=== PATIENT | male | born 1990 | race Caucasian/White ===

== ENCOUNTER → 2020-12-29 07:59 | Outpatient (CLI) | payer OTHER, SELFPAY ==
--- NOTE | ~2020-12-29 | CT_ITS ---
EXAMINATION: CT sinus wo con DATE: 12/29/2020 08:20 INDICATION: Chronic sinusitis TECHNIQUE: Computed tomography (CT) of the paranasal sinuses was performed without intravenous contra st. The dose-length product was 275.58 mGy-cm. Automated exposure control and iterative reconstructio n technique were employed. COMPARISON: None FINDINGS: There is extensive mucosal thickening of all paranasal sinuses. Rightward nasal septal nancy ation. There is occlusion of the ostiomeatal units. Mastoids are pneumatized. IMPRESSION: 1. Pansinusitis. Reviewed, dictated and finalized at location D. IMPRESSION: 1. Pansinusitis.
== END ==
PROVIDERS: Visit Provider Nurse Practitioner Adult Health
DX: J32.4 Chronic pansinusitis (principal)
CPT/HCPCS: 70486

== ENCOUNTER → 2022-12-28 12:35 | Outpatient (CLI) | payer OTHER, SELFPAY ==
--- NOTE | ~2022-12-28 | CT_ITS ---
EXAMINATION: CT abdomen pelvis w con DATE: 12/28/2022 13:06 INDICATION: Abdominal pain TECHNIQUE: Computed tomography (CT) of the abdomen and pelvis was performed with 100 cc Omnipaque 350 intravenous contrast. The dose-length product was 425.80 mGy-cm. Automated exposure control and iter ative reconstruction technique were employed. COMPARISON: None. FINDINGS: Lung bases are unremarkable. Heart size normal. No significant pleural or pericardial effus ion. No significant vascular abnormality. The liver, spleen, pancreas, adrenal glands and kidneys are unremarkable. Gallbladder is present. No free air or free fluid. Fatty infiltration of the liver. Ga llbladder is present. The spleen, pancreas, adrenal glands and kidneys are unremarkable. Small fat-co ntaining left inguinal hernia. Normal appendix. Gallbladder is present. Nonobstructive bowel pattern. IMPRESSION: 1. No acute abdominal abnormality. Reviewed, dictated and finalized at location []
== END ==
PROVIDERS: PCP Internal Medicine; Visit Provider Internal Medicine
DX: R10.9 Unspecified abdominal pain (principal)
CPT/HCPCS: 74177; Q9967

== ENCOUNTER 2023-09-20 15:56 | Outpatient (CLI) | payer OTHER, SELFPAY ==
--- NOTE | ~2023-09-20 | CT_ITS ---
EXAMINATION: CT sinus wo con DATE: 09/20/2023 16:13 INDICATION: Chronic sinusitis TECHNIQUE: Computed tomography (CT) of the paranasal sinuses was performed without intravenous contra st. The dose-length product was 282.66 mGy-cm. Automated exposure control and iterative reconstructio n technique were employed. COMPARISON: CT dated 12/29/2020 FINDINGS: There is chronic pansinusitis with air-fluid level in the left sphenoid sinus. There is salvador ypoid soft tissue in the maxillary sinuses. Cannot exclude mucous retention cysts. There is improved aeration of the frontal, maxillary and sphenoid sinuses. Mastoids are pneumatized. Rightward nasal se ptal deviation. Ostiomeatal units are occluded bilaterally. Mastoids are pneumatized. IMPRESSION: 1. Chronic pansinusitis, improved compared with prior study. Reviewed, dictated and finalized at location A.
== END 2023-09-20 15:57 ==
PROVIDERS: PCP Otolaryngology; Visit Provider Otolaryngology
DX: J32.4 Chronic pansinusitis (principal)
CPT/HCPCS: 70486